=== PATIENT | male | born 1960 | race Caucasian/White ===

== ENCOUNTER → 2019-12-15 15:23 | Outpatient (REF) | payer OTHER, SELFPAY | LOC: ANHLAB 15:23 | PROVIDERS: Visit Provider Nurse Practitioner | DX: L81.4 Other melanin hyperpigmentation (principal) | CPT/HCPCS: 88305 ==

== ENCOUNTER 2024-12-29 15:49 | Outpatient (CLI) | payer BC, SELFPAY ==
--- NOTE | ~2024-12-29 | MR_ITS ---
MRI of the left knee Clinical history: Aftercare following joint replacement Technique: Coronal proton density and STIR images, sagittal proton-density and STIR images, and axial STIR images were acquired. Findings: Anterior and posterior cruciate ligaments appear intact. Medial collateral ligament is jody sly intact. Lateral collateral ligament complex is intact. Popliteus tendon is intact. There is borderline discoid morphology of the lateral meniscus without evidence of tear. There is medial compartment hemiarthroplasty with associated susceptibility artifact. There is extens dolores high-grade chondral thinning over the anterior aspect of the lateral femoral condyle. There is pa tchy moderate to high-grade chondromalacia of the medial patellar facet with focal subchondral cystic change. Extensor mechanism is intact. No significant joint effusion. Minimal Trujillo's cyst. Impression: Medial compartment hemiarthroplasty with associated susceptibility artifact. 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 Minimal Trujillo's cyst. Reviewed, dictated and finalized at location . Impression: Medial compartment hemiarthroplasty with associated susceptibility artifact. 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 Minimal Trujillo's cyst.
== END 2024-12-29 15:50 | disposition home or self-care (01) ==
PROVIDERS: PCP Family Medicine
DX: Z47.1 Aftercare following joint replacement surgery (principal); M22.42 Chondromalacia patellae, left knee; Z96.652 Presence of left artificial knee joint; M25.562 Pain in left knee; G89.29 Other chronic pain
CPT/HCPCS: 73721

== ENCOUNTER 2025-06-15 08:38 | Outpatient (CLI) | payer BC, SELFPAY ==
--- OUTSIDE RECORDS SUMMARY | 2025-06-15 09:11 | XMS_ITS | Clinical Summary ---
Author Organization [facility] Address [address] [place] [address] Care Team Providers Care Correctional Maintenance Technician Name Role Phone Zohaib Elizondo MD Primary Care Provider + Source Comments [facility],non-owned Affiliates and Associated Physician Practices is amultiple site organization consisting of ambulatory clinics and hospital sitesin [place], [place], [place] and [place]. This disclosure is being madepursuant to the Care Everywhere program and may not contain all information available regarding this patient. Last updated 18.[facility] Allergies No known active allergies Medications * Be aware that medications may not be up to date on this document. Alwaysverify current medications with the patient. aspirin (ASPIRIN) 81 MG tablet Take 81 mg by mouth once daily Active lisinopril (PRINIVIL;ZESTR IL) 5 MG tablet Take 5 mg by mouth once daily Active carvedilol (COREG) 3.125 MG tablet Take 3.125 mg by mouth once daily Active omeprazole (PRILOSEC) 20 MG capsule Take 20 mg by mouth as needed for Heartburn Active atorvastatin (LIPITOR) 80 MG tablet Take 80 mg by mouth at bedtime Active HYDROcodone-rickey taminophen (NORCO) 5-325 MG tablet Take 1 Tab by mouth every 4 hours as needed for Pain 30 Tab 6 Active docusate sodium (COLACE) 100 MG capsule Take 1 Cap by mouth once daily 20 Cap 6 Active Active Problems Problem Noted Date Diagnosed Date Cardiac dysfunction Social History Tobacco Use Types Packs/Day Years Used Date Smoking Tobacco: Never Alcohol Use Standard Drinks/Week Comments Yes 0 (1 standard drink = 0.6 oz pur e alcohol) occational Sex and Gender Information Value Date Recorded Sex Assigned at Not on file Legal Sex Male 6:15 AM LACE BURN OUT TENDER Gender Identity Not on file Sexual Orientation Not on file Last Filed Vital Signs Vital Sign Reading Time Taken Comments Blood Pressure 127/88 05/30/2016 10:38 AM LACE BURN OUT TENDER Pulse 64 05/30/2016 10:38 AM LACE BURN OUT TENDER Temperature 36.4 C (97.6 F) 05/30/2016 10:38 AM LACE BURN OUT TENDER Respiratory Rate 16 05/30/2016 10:38 AM LACE BURN OUT TENDER Oxygen Saturation 95% 05/30/2016 10:38 AM LACE BURN OUT TENDER Inhaled Oxygen Concentration - - Weight 99.8 kg (220 lb) 05/30/2016 6:04 AM LACE BURN OUT TENDER Height 175.3 cm (5' 9) 05/30/2016 6:04 AM LACE BURN OUT TENDER Body Mass Index 32.49 05/30/2016 6:04 AM LACE BURN OUT TENDER Plan of Treatment Health Maintenance Due Date Last Done Comments COLOGUARD (AGES 45-75) - COL ON CA SCREENING 1962 COLON MONITORING 1962 COLONOSCOPY - COLON CA SCREENING 1962 CT COLONOGRAPHY - COLON CA SCREENING 1962 Colorectal Cancer Screening 1962 FIT - COLON CA SCREENING 1962 FLEX SIG - COLON CA SCREENING 1962 HIV SCREENING 1977 HEPATITIS C SCREENING 10/28/1980 DTAP/TDAP/TD VACCINES (1 - Tdap) 1981 PNEUMOCOCCAL VACCINE 50+ (1 of 1 - PCV) 2012 ZOSTER VACCINE (1 of 2) 2012 DEPRESSION SCREENING 06/25/2024 COVID-19 VACCINE (1 - 2024-2 6 season) 2025 INFLUENZA VACCINE (#1) 2025 Respiratory Syncytial Virus (RSV) Vaccine Pt: or over 60 yrs (1 - 1-dose 75+ series) 2037 HEPATITIS B VACCINE Aged Out No longe r eligible based on patient's age to complete this topic HIB VACCINE Aged Out No longer eligi ble based on patient's age to complete this topic HPV VACCINE Aged Out No longer eligi ble based on patient's age to complete this topic MENINGOCOCCAL (Group B) VACC INE SHARED DECISION-MAKING Aged Out No longer eligibl e based on patient's age to complete this topic MENINGOCOCCAL GROUPS A/C/Y/W VACCINE Aged Out No longer eligible b ased on patient's age to complete this topic Medical Devices Implanted Type Area Solar Thermal Technician Device Identifier Shelf Expiration Date Model / Serial / Lot Swvllok Dbl Ld Biocomp 4.75mm Implanted:Qty: 1 on 05/30/2016 by Angel Bermudez MD at [facility] Left: Shoulder [employer] 01/22/2018 [id number] / / [id number] Insurance [facility] Address: [facility] [id number] [place] [address] [place] [address] [facility] [place] [address] Care Teams Correctional Maintenance Technician Relationship Specialty Start Date End Date Zohaib Elizondo MD [address] [address] PCP - General Internal Medicine 09/18/13
--- OUTSIDE RECORDS SUMMARY | 2025-06-15 09:11 | XMS_ITS | Clinical Summary ---
Author Organization [facility] [address] Address [address] [place] [address] Care Team Providers Care Photography Professor Name Role Phone Sinan Simmons MD Primary Care Provider [phone] Allergies Active Allergy Reactions Criticality Noted Date Comments Clopidogrel Hives Medium Stated he probably got hives or something as they switched to another med. Medications fluticasone propionate (FLONASE) 50 mcg/actuation nasal sprayIndications :Allergic Rhinitis Administer 2 sprays into each nostril 2 (two) times a day Active acetaminophen (TYLENOL) 500 mg tablet Take 2 tablets (1,000 mg total) by mouth every 8 (eight) hours 90 tablet 1 4 Active fexofenadine (ALLIE) 180 mg tabletIndication s:Allergic Rhinitis Take 1 tablet (180 mg total) by mouth every morning Active famotidine (PEPCID) 20 mg tabletIndication s:gastroesophage al reflux disease Take 1 tablet (20 mg total) by mouth nightly 5 Active herbal drugs capsuleIndicatio ns:Uses for work outs Take by mouth every morning Creatine 1.5g 2 capsules by mouth ( usually takes before workouts and if not working working out that day takes in the morning) Active herbal drugs tablet Take by mouth as needed Branch chain amino acids powder, uses when he's working out 3-4 times per week (lifts weights) Active herbal drugs tablet Take by mouth Pre workout stimulant before workouts 3-4 days per week as needed (depends on how tired he is before working out) 1/2 scoop mixed in water by mouth as needed Active multivitamin with minerals tabletIndication s:Vitamin Deficiency Prevention Take 1 tablet by mouth every morning Active tetrahydrozoline 0.05 % ophthalmic solutionIndicati ons:Ocular Redness Administer 1 drop into both eyes as needed for irritation Active creatine monohydrate 5,000 mg powder in packet Take by mouth Active rosuvastatin (CRESTOR) 20 mg tablet Take 1 tablet (20 mg total) by mouth nightly 90 tablet 6 5 Active oxyCODONE (ROXICODONE) 5 mg immediate release tabletIndication s:Pain Take 1 tablet (5 mg total) by mouth every 4 (four) hours as needed for pain 10 tablet 5 Active traMADoL (ULTRAM) 50 mg tablet Take 1 tablet (50 mg total) by mouth every 8 (eight) hours as needed for pain 30 tablet 5 Active Active Problems Problem Noted Date Diagnosed Date Acute meniscal tear of left knee, initial encoun ter 02/05/2025 Acute meniscal tear of left knee 01/19/2025 Osteoarthritis of left knee, unspecified osteoarthritis type 12/11/2023 Primary osteoarthritis of left knee 08/30/2023 Post-traumatic osteoarthritis of left knee 05/10 Obstructive sleep apnea 02/11/2018 Lumbar radiculopathy 11/03/2014 Arthralgia of shoulder 04/04/2010 Knee pain 04/04/2010 Encounters Date Type Department Care Team Description 03/20/2025 8:15 AM CDT Ancillary Procedure [facility] [address] [place] [address] OTTO (dyspnea on exertion); Chest tightness; History of cardiomyopathy 03/20/2025 Results Follow-Up [facility] [address] [facility] [address] [place] [phone] Tuan Bowling MD Transthoracic Echo (TTE) Complete W Doppler/CF 03/18/2025 7:10 AM CDT Telemedicine [facility] Medicine Orthopaedic Surgery [address] [facility] [address] [place] [address] Max Ramirez MD Chronic pain of left knee (Primary Dx); Aftercare following left knee joint replacement surgery from Last 3 Months Surgical History Surgery Date Site/Laterality Comments MENISCUS SURGERY Bilateral Dates unknown HERNIA REPAIR 1965,1988 Probably about 20 years ago ROTATOR CUFF REPAIR 05/30/2016 Left TOTAL KNEE ARTHROPLASTY 12/11/2023 Left ARTHROPLASTY LEFT KNEE - UNICOMPARTMENTAL - PURVI ROBOTIC ARM AME (Left) PURVI Assisted Robotic Surgery ROTATOR CUFF REPAIR Right before 2016 Medical History Medical History Date Comments Hx Other Medical takotsubo cardi omyopathy Hx Other Medical bilateral knee surgery Sleep apnea 10 years ago approx CPAP is act ing up so has to go have another sleep test 01/31/25 Heart problem about 7 years ag o- pt says he was on the Plavix and when allergic to that another med briefly for a stress heart attack. No blockages Brain concussion 1979 Family History Medical History Relation Name Comments Other Father Prostatitis; Other Mother liver issues; C ause of : liver issues Anesthesia problems Neg Hx Relation Name Status Comments Father Mother (Age 36) Social History Tobacco Use Types Packs/Day Years Used Date Smoking Tobacco: Never Passive Smoke Exposure: Never Smokeless Tobacco: Never Tobacco Cessation:Counseling Given: Not Answered Alcohol Use Standard Drinks/Week Comments Yes 2 (1 standard drink = 0.6 oz pur e alcohol) AUDIT-C Answer Date Recorded Q1: How often do you have a drink containing alc ohol? 2-4 times a month 02/05/2025 Q2: How many drinks containi ng alcohol do you have on a typical day when you are drinking? 3 or 4 02/05/2025 Q3: How often do you have si x or more drinks on one occasion? Less than monthly 02/05/2025 Personal Safety Answer Date Recorded Have you ever been in or are you currently in a harmful physical or emotional relationship or is someone making you feel afraid or unsafe? Denies 02/05/2025 Sex and Gender Information Value Date Recorded Sex Assigned at Not on file Legal Sex Male 12:53 AM ART SUPERVISOR Gender Identity Male 08/29/2023 4:31 PM ART SUPERVISOR Sexual Orientation Not on file Last Filed Vital Signs Vital Sign Reading Time Taken Comments Blood Pressure 133/72 02/05/2025 9:40 AM CDT Pulse 74 02/05/2025 9:40 AM CDT Temperature 35.8 C (96.4 F) 02/05/2025 9:40 AM CDT Respiratory Rate 21 02/05/2025 9:40 AM CDT Oxygen Saturation 94% 02/05/2025 9:40 AM CDT Inhaled Oxygen Concentration - - Weight 109.3 kg (241 lb) 02/05/2025 5:30 AM CDT Height 175.3 cm (5' 9) 01/28/2025 9:15 AM CDT Body Mass Index 35.59 01/28/2025 9:15 AM CDT Plan of Treatment Health Maintenance Due Date Last Done Comments Depression Screening 1962 Hepatitis C Screening 1962 Prostate Cancer Screening-PSA 1962 DTaP/Tdap/Td Vaccine (1 - Tdap) 1973 Hepatitis B Screening 1980 Regular Well Visit/Exam 18-64 1980 Zoster Vaccine (1 of 2) 2012 Colon Cancer Screening-Colonoscopy 10/12/2024 10/12/2014 Influenza Vaccine (#1) 2025 2, 04/20/2021, 04/08/2020, Additional history exists Colon Cancer Screening-CT Colonography Discontinued 10/12/2014 Colon Cancer Screening-DNA Stool Discontinued 10/12/2014 Colon Cancer Screening-FIT Discontinued 10/12/2014 Colon Cancer Screening-Sigmoidoscopy Discontinued 10/12/2014 Pneumococcal vaccine <65 Aged Out No longer eligible based on patient's age to complete this topic Medical Devices Implanted Type Area Cooler Worker Device Identifier Shelf Expiration Date Model / Serial / Lot [employer] Smartset Medium Viscosity Cement 40gm Bone Sterile 3122-040 - [id number] Implanted:Qty: 1 on 12/11/2023 at [facility] Left: Knee [employer] 11/22/2024 3122-040 / / [id number] [employer] Bsplt Tibial 5 Knee Left Medial Right Lat Mck System [id number] - [id number] Implanted:Qty: 1 on 12/11/2023 at [facility] Left: Knee [employer] 08/06/2028 [id number] / [id number] / [id number] [employer] Insert Purvi Tibial X3 Onlay Size 5 X 8mm Unicompartmental Knee Strl [id number] - [id number] Implanted:Qty: 1 on 12/11/2023 at [facility] Left: Knee [employer] 07/11/2028 [id number] / / [id number] [employer] Cmpnt Fem 5 Std Knee Condyle Left Medial Right Lat [id number] - [id number] Implanted:Qty: 1 on 12/11/2023 at [facility] Left: Knee [employer] 08/02/2028 [id number] / [id number] Procedures Procedure Name Priority Date/Time Associated Diagnosis Comments TRANSTHORACIC ECHO (TTE) COMPLETE W DOPPLER/CF WO CONTRAST Routine 03/20/2025 9:08 AM CDT OTTO (dyspnea on exertion) Chest tightness History of cardiomyopathy COLONOSCOPY REPORT 10/12/2014 from Last 3 Months or Most Recently Relevant to Health Maintenance Results * TRANSTHORACIC ECHO (TTE) COMPLETE W DOPPLER/CF WO CONTRAST (03/20/2025 9:08 AM CDT) Estimated EF 60 % CONS SCIMAGE EF Mod BP 63 % CONS SCIMAGE Anatomical Region Laterality Modality Ultrasound 03/20/2025 8:22 AM CDT Narrative 03/20/2025 12:14 PM CDT [facility] [address], [place] [address] [address] [facility] [facility] [address], [place] [address] P:[phone] P:[phone] Echocardiographic Report Patient Name: KYLE BRYANT P : 1960 Study Date: 03/20/2025 8:22:48 AM Gender: M [employer] Chief: Indigo Romero)([place]), [facility] Location: [place] Ref Provider: TUAN BOWLING Height(Cm): 175 BSA: 2.31 Weight(Kg): 109.3 Heart Rate: 64 BP: 133 / 72 Quality: Good Order Provider: TUAN BOWLING PROCEDURES: Echocardiographic Report: Transthoracic echocardiogram with complete 2D, M-Mode, and color Doppler examination. With Strain Analysis. INDICATIONS: R06.09 Other forms of dyspnea, R07.89 Other chest pain, and Z86.79 Personal history of other diseases of the circulatory system. MEASUREMENTS: 2D/MM Value Range Doppler Value Range EF Mod BP 63 % [ 52 - 72 ] MADELEINE Vmax 3.33 cm2 [ 2.00 - 4.00 ] Estimated EF 60 % AV Mean PG 4 mmHg LV GLS -14.43 % AV Peak Franklin 1.27 m/s [ 1.00 - 1.70 ] LVIDd 2D 4.85 cm [ 4.20 - 5.80 ] AV Peak PG 7 mmHg LVIDs 2D 3.15 cm [ 2.50 - 4.00 ] AV VTI 26.69 cm LVPWd 2D 1.29 cm [ 0.60 - 1.00 ] LVOT Diam 2.25 cm [ 1.70 - 2.10 ] IVSd 2D 1.49 cm [ 0.60 - 1.00 ] LVOT Peak Franklin 1.07 m/s [ 0.70 - 1.10 ] AoR Diam 2D 4.24 cm [ 3.10 - 3.70 ] LVOT VTI 21.49 cm LA Volume 43.02 ml [ 18.00 - 58.00 ] MV E Peak Franklin 0.59 m/s [ 0.60 - 1.30 ] LA Volume Index 19 cc/m2 [ 16 - 28 ] MV A Peak Franklin 0.75 m/s [ 1.00 - 1.20 ] RA Volume 31.28 ml MV Decel Time 369 msec [ 104 - 258 ] PV Peak Franklin 0.96 m/s [ 0.40 - 0.80 ] TR Peak Franklin 2.38 m/s [ 1.00 - 2.80 ] TR Peak PG 23 mmHg RV S` 16.89 mmHg Lateral E` 0.05 m/s [ 0.10 - 0.15 ] Septal E` 0.05 m/s [ 0.08 - 0.15 ] E` 0.05 m/s E/E` 11 Tapse 2.46 cm [ 1.71 - 5.00 ] 2D/MM Value Range Doppler Value Range - FINDINGS: Interpretation Site: Exam was interpreted at [facility]. Left Ventricle: Normal left ventricular size. Normal global left ventricular systolic function. Impaired diastolic relaxation Grade I. Ejection fraction is measured at 63 %. Ejection Fraction is visually estimated to be 60 %. Global Longitudinal Strain is -14 %. Right Ventricle: Normal right ventricular size. Left Atrium: The left atrium is normal in size. Right Atrium: The right atrium is normal in size. Atrial Septum: Normal atrial septum. Mitral Valve: Normal appearance of the mitral valve. Mild mitral valve regurgitation. Aortic Valve: Normal appearance of the aortic valve. Trace aortic valve regurgitation. Tricuspid Valve: Normal appearance of the tricuspid valve. Pulmonic Valve: Normal appearance of the pulmonic valve. Trivial regurgitation in the pulmonic valve. Pericardium: Normal pericardium with no significant pericardial effusion. Aorta: Aortic root is mildly dilated. IVC: Normal size and normal respiratory collapse consistent with normal right atrial pressure (<5 mmHg). Pulmonary Artery: Normal pulmonary artery size. CONCLUSIONS: Normal left ventricular size. Normal global left ventricular systolic function. Impaired diastolic relaxation Grade I. Ejection fraction is measured at 63 %. Ejection Fraction is visually estimated to be 60 %. Global Longitudinal Strain is -14 %. Normal appearance of the mitral valve. Mild mitral valve regurgitation. Trivial aortic and pulmonic regurgitation. Electronically Signed By: Nathaniel Reilly MD, [facility] 03/20/2025 12:13:43 PM CDT Procedure Note Nathaniel Reilly MD - 03/20/2025 [facility] [address] [facility] [address], [place], [place] [id number] [address] [facility] [id number], [place] [address] P:[phone] P:[phone] Echocardiographic Report Patient Name: KYLE BRYANT P : 1960 Study Date: 03/20/2025 8:22:48 AM Gender: M [employer]: Indigo Romero)([place]), [facility] Location: [facility] Provider: TUAN BOWLING Height(Cm): 175 BSA: 2.31 Weight(Kg): 109.3 Heart Rate: 64 BP: 133 / 72 Quality: Good Order Provider: TUAN BOWLING PROCEDURES: Echocardiographic Report: Transthoracic echocardiogram with complete 2D, M-Mode, and color Dopplerexamination. With Strain Analysis. INDICATIONS: R06.09 Other forms of dyspnea, R07.89 Other chest pain, and Z86.79Personal history of other diseases of the circulatory system. MEASUREMENTS: 2D/MM Value Range Doppler ValueRange EF Mod BP 63 % [ 52 - 72 ] MADELEINE Vmax 3.33cm2 [ 2.00 - 4.00 ] Estimated EF 60 % AV Mean PG 4mmHg LV GLS -14.43 % AV Peak Franklin 1.27m/s [ 1.00 - 1.70 ] LVIDd 2D 4.85 cm [ 4.20 - 5.80 ] AV Peak PG 7mmHg LVIDs 2D 3.15 cm [ 2.50 - 4.00 ] AV VTI 26.69cm LVPWd 2D 1.29 cm [ 0.60 - 1.00 ] LVOT Diam 2.25cm [ 1.70 - 2.10 ] IVSd 2D 1.49 cm [ 0.60 - 1.00 ] LVOT Peak Franklin 1.07m/s [ 0.70 - 1.10 ] AoR Diam 2D 4.24 cm [ 3.10 - 3.70 ] LVOT VTI 21.49cm LA Volume 43.02 ml [ 18.00 - 58.00 ] MV E Peak Franklin 0.59m/s [ 0.60 - 1.30 ] LA Volume Index 19 cc/m2 [ 16 - 28 ] MV A Peak Franklin 0.75m/s [ 1.00 - 1.20 ] RA Volume 31.28 ml MV Decel Time 369msec [ 104 - 258 ] PV Peak Franklin 0.96 m/s [ 0.40 - 0.80 ] TR Peak Franklin 2.38 m/s [ 1.00 - 2.80 ] TR Peak PG 23 mmHg RV S` 16.89 mmHg Lateral E` 0.05 m/s [ 0.10 - 0.15 ] Septal E` 0.05 m/s [ 0.08 - 0.15 ] E` 0.05 m/s E/E` 11 Tapse 2.46 cm [ 1.71 - 5.00 ] 2D/MM Value Range Doppler ValueRange - FINDINGS: Interpretation Site: Exam was interpreted at [facility]. Left Ventricle: Normal left ventricular size. Normal global left ventricular systolicfunction. Impaired diastolic relaxation Grade I. Ejection fraction is measured at 63 %.Ejection Fraction is visually estimated to be 60 %. Global Longitudinal Strain is -14 %. Right Ventricle: Normal right ventricular size. Left Atrium: The left atrium is normal in size. Right Atrium: The right atrium is normal in size. Atrial Septum: Normal atrial septum. Mitral Valve: Normal appearance of the mitral valve. Mild mitral valve regurgitation. Aortic Valve: Normal appearance of the aortic valve. Trace aortic valve regurgitation. Tricuspid Valve: Normal appearance of the tricuspid valve. Pulmonic Valve: Normal appearance of the pulmonic valve. Trivial regurgitation in thepulmonic valve. Pericardium: Normal pericardium with no significant pericardial effusion. Aorta: Aortic root is mildly dilated. IVC: Normal size and normal respiratory collapse consistent with normal rightatrial pressure (<5 mmHg). Pulmonary Artery: Normal pulmonary artery size. CONCLUSIONS: Normal left ventricular size. Normal global left ventricular systolicfunction. Impaired diastolic relaxation Grade I. Ejection fraction is measured at 63 %.Ejection Fraction is visually estimated to be 60 %. Global Longitudinal Strain is -14 %. Normal appearance of the mitral valve. Mild mitral valve regurgitation. Trivial aortic and pulmonic regurgitation. Electronically Signed By: Nathaniel Reilly MD, [facility] 03/20/2025 12:13:43 PM CDT Tuan Bowling MD CV ECHO PROCEDURES Final Result * COLONOSCOPY REPORT (10/12/2014) Anatomical Region Laterality Modality Other Narrative 10/12/2014 Ordered by an unspecified provider. Historical Provider GI PROCEDURE ORDERABLES F inal Result from Last 3 Months or Most Recently Relevant to Health Maintenance Insurance [facility] CHOICE PLUS [facility] HMO/PPO Address: [facility] [address] [place] [address] [id number] [place] [address] [employer] CHOICE [place] [facility] CHOICE [place] [facility] CHOICE PLUS [facility] HMO/PPO Address: [address] [address] [place] [address] Advance Directives For more information, please contact: [phone] * Full Code (Latest Code Status on File) Date Activated Date Inactivated Comments 12/11/2023 2:52 PM 12/12/2023 3:11 PM Care Teams Photography Professor Relationship Specialty Start Date End Date Sinan Simmons MD [address] [place], [place] [id number] PCP - General Family Medicine 03/20/25
[2025-06-15 09:12] LABS: Hematocrit 41.2 % (42.0-52.0); Hemoglobin 13.4 g/dL (14.0-18.0); Immature Granulocyte Percent A 0.5 % (0-0.5); Lymphocytes Absolute Auto 1.58 K/mm3 (0.9-3.2); Mean Corpuscular HGB Conc 32.5 g/dl (32-36); Mean Corpuscular Hemoglobin 27.8 pg (26-34); Mean Corpuscular Volume 85.5 fl (80-100); Nucleated Red Blood Cells Absolute Auto 0.000 K/mm3 (0.0-0.012); Nucleated Red Blood Cells Perc 0.0 % (0.0-0.2); Platelet Count Result 284 k/mm3 (150-375); Red Blood Count 4.82 M/mm3 (4.6-6.20); White Blood Count 5.9 K/mm3 (4.5-10.0)
[2025-06-15 09:48] LABS: Alanine Aminotransferase 31 U/L (6-50); Albumin Level 4.2 g/dL (3.5-5.1); Alkaline Phosphatase 59 U/L (38-126); Anion Gap 7 mmol/L (4-12); Aspartate Amino Transferase 33 U/L (17-59); Bilirubin,Total 0.5 mg/dL (0.2-1.3); Blood Urea Nitrogen 19 mg/dL (9-20); Calcium 9.4 mg/dL (8.4-10.2); Carbon Dioxide 26 mmol/L (22-30); Chloride 105 mmol/L (98-107); Cholesterol 222 mg/dL (0-200); Estimated Glomerular Filt Rate > 60; Glucose 98 mg/dL (65-110); HDL Direct 46 mg/dL; Potassium 4.2 mmol/L (3.4-5.0); Sodium 138 mmol/L (137-145); Total Protein 7.0 g/dL (6.3-8.2); Triglycerides 94 mg/dL (<150)
[2025-06-15 10:24] LABS: Prostate Specific Antigen 10.0 ng/mL (< OR = 4.0); Thyroid Stimulating Hormone 2.680 uIU/mL (0.465-4.680)
[2025-06-17 20:07] LABS: Free Testosterone (Direct) 5.3 pg/mL (6.6-18.1)
== END 2025-06-15 08:39 | disposition home or self-care (01) ==
LOC: ANHLAB 08:40
PROVIDERS: PCP Family Medicine; Visit Provider Nurse Practitioner Family
DX: E78.5 Hyperlipidemia, unspecified (principal); Z12.5 Encounter for screening for malignant neoplasm of prostate; Z13.29 Encounter for screening for other suspected endocrine disorder; R68.82 Decreased libido
CPT/HCPCS: 36415; 80053; 80061; 84153; 84402; 84403; 84443; 85025; G0103